=== PATIENT | male | born 1995 | race Caucasian/White ===

== ENCOUNTER 2017-02-28 21:55 | Emergency (ER) | payer OTHER ==
[~2017-02-28] VITALS: Ht 185.4 cm; Wt 78.7 kg
[2017-02-28 22:58] LABS: HEMATOCRIT 42.3 % (38.0-50.0); MCH 31.3 PG (29.0-34.0); MCHC 36.2 G/DL (30.0-36.0); MCV 86.5 FL (86-99); MEAN PLAT.VOLUME 10.1 uM^3 (9.0-12.4); PLATELET COUNT 308 K/uL (156-360); RBC DIS.WIDTH-CV 12.1 % (11.8-14.6); RBC DIS.WIDTH-SD 38.5 % (39-53); RED BLOOD COUNT 4.89 M/uL (4.00-5.50)
[2017-02-28 23:11] LABS: CHLORIDE 107 mEq/L (99-109); POTASSIUM 3.6 mEq/L (3.7-5.4); SODIUM 141 mEq/L (136-147)
[2017-02-28 23:13] LABS: GLUCOSE 98 mg/dL (70-99)
[2017-02-28 23:15] LABS: ANION GAP 10 MEQ/L (2-14); TOTAL BILIRUBIN 5.2 mg/dL (0.0-1.0)
[2017-02-28 23:17] LABS: ALKALINE PHOSPHATASE 82 IU/L (3-129)
[2017-02-28 23:18] LABS: UREA NITROGEN (BUN) 8 mg/dL (9-23)
[2017-02-28 23:19] LABS: GFR ESTIMATE (CALCULATED) > 59 mL/min/
[2017-03-01 01:39] LABS: DIRECT BILIRUBIN 0.3 mg/dL (0.0-0.3)
[2017-03-01 01:40] LABS: LIPASE 26 U/L (1.0-51.0)
[2017-03-01] MEDS ORDERED: ZOFRAN4 MG PO (03:20)
[2017-03-01 03:31] VITALS: BP 98/76
[2017-03-01 03:36] LABS: ADD MIUA? NO; BILIRUBIN NEGATIVE; BLOOD NEGATIVE; COLOR YELLOW ((YELLOW)); GLUCOSE (STRIP) NEGATIVE; KETONES NEGATIVE; LEUKOCYTES NEGATIVE; NITRITE NEGATIVE; PROTEIN (STRIP) 30; SPECIFIC GRAVITY 1.027 (1.000-1.030); UCUL ADDED? NO
== END 2017-03-01 03:32 | disposition left against medical advice (07) ==
LOC: EME 21:55
DX: R10.9 Unspecified abdominal pain (principal); R11.2 Nausea with vomiting, unspecified; E80.6 Other disorders of bilirubin metabolism; F17.200 Nicotine dependence, unspecified, uncomplicated
CPT/HCPCS: 80053; 81003; 82248; 83690; 85027; 99281; 99284